=== PATIENT | male | born 1940 | race Caucasian/White ===

== ENCOUNTER 2016-12-03 20:21 | Emergency (ER) | payer OTHER ==
[~2016-12-03] VITALS: Ht 167.6 cm; Wt 72.6 kg
[~2016-12-03 20:21] MED LIST: ALDACTONE25 MG PO; ASPIRIN81 M1 PO; CIPROFLOXACIN500 M4 PO; COREG6.25 MG PO; DILTIAZEM HCL30 MG PO; ENOXAPARIN100 MG/ML SC; FAMOTIDINE20 M1 PO; FINASTERIDE5 M1 PO; KEFLEX500 M1 PO; LANOXIN0.125 MG PO; LASIX20 MG PO; LIPITOR40 MG PO; LISINOPRIL2.5 MG PO; LISINOPRIL5 MG PO; METOPROLOL SUCC25 M2 PO; PACERONE200 MG PO; PREDNISONE5 MG PO; PROVENTIL0.09 MG/A1 INH; SODIUM CHLORIDE IV; SPIRIVA18 MCG PO; TAMSULOSIN HCL0.4 MG PO; VICODIN 5-3001 EACH PO; XARE20MG PO; ZITHROMAX250 MG PO
[2016-12-03 22:07] LABS: BASO % 0.3 % (0.0-1.0); EOS # 0.1 10*3/uL (0.0-0.4); EOS % 0.5 % (1.0-4.0); HEMATOCRIT 49.5 % (42.0-52.0); HEMOGLOBIN 16.1 g/dl (14.0-18.0); LYMPH # 1.7 10*3/uL (1.3-4.4); LYMPH % 18.3 % (27.0-41.0); MEAN CELL VOLUME 99.6 fl (80.0-94.0); MEAN CORPUSCULAR HGB 32.4 pg (27.0-31.0); MEAN CORPUSCULAR HGB CONC 32.5 g/dl (33.0-37.0); MEAN PLATELET VOLUME 10.7 fl (9.6-12.3); MONO # 0.7 10*3/uL (0.1-1.0); MONO % 7.8 % (3.0-9.0); NEUT # 6.9 10*3/uL (2.3-7.9); NEUT % 72.8 % (47.0-73.0); PLATELET COUNT AUTOMATED 175 10*3/uL (130-400); RED BLOOD COUNT 4.97 10*6/uL (4.50-5.90); RED CELL DISTRI WIDTH 14.7 % (0-14.5); WHITE BLOOD COUNT 9.5 10*3/uL (4.8-10.8)
[2016-12-03 22:17] LABS: PROTHROMBIN TIME 10.6 SECONDS (9.0-12.4)
[2016-12-03 22:23] LABS: ALBUMIN 3.6 gm/dl (3.1-4.5); ALKALINE PHOSPHATASE 90 U/L (45-117); BILIRUBIN, DIRECT 0.1 mg/dL (0.0-0.2); BILIRUBIN, TOTAL 0.5 mg/dl (0.2-1.0); BUN 26 mg/dl (7-24); CARBON DIOXIDE 26 mmol/L (21-32); CHLORIDE 107 mmol/L (98-107); EST GLOM FILT AFRICAN AMERICAN > 60 ml/min; GLUCOSE 82 mg/dL (65-99); POTASSIUM 4.1 mmol/L (3.5-5.1); SGOT/AST 16 IU/L (3-35); SGPT/ALT 30 U/L (12-78); SODIUM 144 mmol/L (136-145); TOTAL PROTEIN 7.9 gm/dL (6.4-8.2)
== END 2016-12-03 23:04 | disposition short-term general hospital (02) ==
LOC: ED 20:21
PROVIDERS: Emergency Medicine
DX: S06.300A Unspecified focal traumatic brain injury without loss of consciousness, initial encounter (principal); S01.112A Laceration without foreign body of left eyelid and periocular area, initial encounter; S01.21XA Laceration without foreign body of nose, initial encounter; Z87.891 Personal history of nicotine dependence; I48.91 Unspecified atrial fibrillation; I48.92 Unspecified atrial flutter; I50.9 Heart failure, unspecified; J44.9 Chronic obstructive pulmonary disease, unspecified; E78.5 Hyperlipidemia, unspecified; Z79.82 Long term (current) use of aspirin; W01.198A Fall on same level from slipping, tripping and stumbling with subsequent striking against other object, initial encounter; Y93.89 Activity, other specified; Y92.89 Other specified places as the place of occurrence of the external cause; Y99.9 Unspecified external cause status

== ENCOUNTER 2018-04-10 14:58 | Inpatient (IN) | payer OTHER ==
[~2018-04-10] VITALS: Ht 35.2 cm; Wt 72.2 kg
[2018-04-10] VITALS (7 sets, daily range): BP systolic 89–148; BP diastolic 50–70
[2018-04-10] MEDS ORDERED: CEPHALEXIN500 M1 PO (16:02)
[2018-04-10 16:56] LABS: BASO % 0.7 % (0.0-1.0); EOS # 0.2 10*3/uL (0.0-0.4); EOS % 3.3 % (1.0-4.0); HEMOGLOBIN 13.5 g/dl (14.0-18.0); LYMPH # 1.7 10*3/uL (1.3-4.4); LYMPH % 30.3 % (27.0-41.0); MEAN CORPUSCULAR HGB 30.2 pg (27.0-31.0); MEAN CORPUSCULAR HGB CONC 32.1 g/dl (33.0-37.0); MEAN PLATELET VOLUME 11.1 fl (9.6-12.3); MONO # 0.6 10*3/uL (0.1-1.0); MONO % 11.3 % (3.0-9.0); NEUT % 54.2 % (47.0-73.0); PLATELET COUNT AUTOMATED 154 10*3/uL (130-400); RED BLOOD COUNT 4.47 10*6/uL (4.50-5.90); RED CELL DISTRI WIDTH 14.7 % (0-14.5); WHITE BLOOD COUNT 5.5 10*3/uL (4.8-10.8)
[2018-04-10] MEDS ORDERED: AMIODARONE HCL200 MG PO (16:59)
[2018-04-10] MEDS ORDERED: CITALOPRAM HYDR10 MG PO (17:00)
[2018-04-10] MEDS ORDERED: ATORVASTATIN CA40 M1 PO (17:00)
[2018-04-10 17:10] LABS: ALKALINE PHOSPHATASE 129 U/L (45-117); BUN 29 mg/dl (7-24); CREATININE 0.94 mg/dL (0.70-1.30); SGOT/AST 27 IU/L (3-35); SGPT/ALT 51 U/L (12-78)
[2018-04-10 17:19] LABS: CHLORIDE 110 mmol/L (98-107); POTASSIUM 4.2 mmol/L (3.5-5.1); SODIUM 140 mmol/L (136-145)
[2018-04-10 18:41] LABS: BILIRUBIN NEGATIVE (NEGATIVE); BLOOD 1+ (NEGATIVE); CLARITY CLOUDY (CLEAR); COLOR YELLOW (YELLOW); GLUCOSE NEGATIVE (NEGATIVE); KETONE NEGATIVE (NEGATIVE); LEUKO ESTERASE 3+ (NEGATIVE); NITRITE POSITIVE (NEGATIVE)
[2018-04-10 19:06] LABS: BACTERIA 3+; WBC TNTC wbc/hpf (0-5)
[2018-04-11 00:03] VITALS: BP 80/50
[2018-04-11 00:19] VITALS: BP 90/56
[2018-04-11 06:32] LABS: BASO % 0.2 % (0.0-1.0); EOS # 0.2 10*3/uL (0.0-0.4); EOS % 2.2 % (1.0-4.0); HEMOGLOBIN 12.7 g/dl (14.0-18.0); LYMPH # 1.7 10*3/uL (1.3-4.4); LYMPH % 21.6 % (27.0-41.0); MEAN CELL VOLUME 94.3 fl (80.0-94.0); MEAN CORPUSCULAR HGB CONC 31.8 g/dl (33.0-37.0); MEAN PLATELET VOLUME 11.1 fl (9.6-12.3); MONO # 0.9 10*3/uL (0.1-1.0); MONO % 11.7 % (3.0-9.0); NEUT # 5.1 10*3/uL (2.3-7.9); NEUT % 63.9 % (47.0-73.0); PLATELET COUNT AUTOMATED 136 10*3/uL (130-400); RED BLOOD COUNT 4.24 10*6/uL (4.50-5.90); RED CELL DISTRI WIDTH 14.9 % (0-14.5); WHITE BLOOD COUNT 8.1 10*3/uL (4.8-10.8)
[2018-04-11 06:44] LABS: INTERNATIONAL NORM RATIO 1.1 (2.0-3.5)
[2018-04-11 06:47] LABS: ALBUMIN 2.5 gm/dl (3.1-4.5); BUN 25 mg/dl (7-24); CHLORIDE 113 mmol/L (98-107); CHOLESTEROL 80 mg/dL (<200); CREATININE 0.93 mg/dL (0.70-1.30); PHOSPHOROUS 2.1 mg/dL (2.5-4.9); POTASSIUM 4.3 mmol/L (3.5-5.1); SGOT/AST 24 IU/L (3-35); SGPT/ALT 44 U/L (12-78); SODIUM 143 mmol/L (136-145); TOTAL PROTEIN 6.4 gm/dL (6.4-8.2); TRIGLYCERIDES 63 mg/dl (<150); VLDL CHOLESTEROL 13 mg/dL (6-40)
[2018-04-11 06:54] LABS: ALKALINE PHOSPHATASE 115 U/L (45-117); HDL CHOLESTEROL 30 mg/dl (40-60); LDL CHOLESTEROL 37 mg/dL (9-159); THYROID STIM HORMONE (HS) < 0.005 uIU/ml (0.358-4.75)
[2018-04-11 08:00] VITALS: BP 90/60
[2018-04-11 10:13] LABS: VITAMIN D, 25-HYDROXY 17.2 ng/mL (30-100)
[2018-04-11 12:00] VITALS: BP 92/64
[2018-04-11] MEDS ORDERED: OXYGEN NAS (13:43)
[2018-04-11 16:00] VITALS: BP 106/65
[2018-04-11 20:00] VITALS: BP 114/67
[2018-04-12] VITALS: BP 103/71
[2018-04-12 07:26] LABS: BASO # 0.1 10*3/uL (0.0-0.1); BASO % 0.7 % (0.0-1.0); EOS # 0.4 10*3/uL (0.0-0.4); EOS % 4.9 % (1.0-4.0); HEMATOCRIT 38.9 % (42.0-52.0); HEMOGLOBIN 12.2 g/dl (14.0-18.0); LYMPH # 2.1 10*3/uL (1.3-4.4); LYMPH % 28.2 % (27.0-41.0); MEAN CELL VOLUME 95.3 fl (80.0-94.0); MEAN CORPUSCULAR HGB 29.9 pg (27.0-31.0); MEAN CORPUSCULAR HGB CONC 31.4 g/dl (33.0-37.0); MEAN PLATELET VOLUME 11.2 fl (9.6-12.3); MONO % 13.6 % (3.0-9.0); NEUT # 3.8 10*3/uL (2.3-7.9); NEUT % 52.3 % (47.0-73.0); PLATELET COUNT AUTOMATED 148 10*3/uL (130-400); RED BLOOD COUNT 4.08 10*6/uL (4.50-5.90); RED CELL DISTRI WIDTH 14.9 % (0-14.5); WHITE BLOOD COUNT 7.3 10*3/uL (4.8-10.8)
[2018-04-12 07:52] LABS: BUN 30 mg/dl (7-24); CHLORIDE 111 mmol/L (98-107); CREATININE 0.82 mg/dL (0.70-1.30); POTASSIUM 4.2 mmol/L (3.5-5.1); SODIUM 142 mmol/L (136-145)
[2018-04-12 08:00] VITALS: BP 108/68
[2018-04-12 12:00] VITALS: BP 110/70
[2018-04-12 16:00] VITALS: BP 105/66
[2018-04-12 20:00] VITALS: BP 102/71
[2018-04-13] VITALS: BP 83/57
[2018-04-13 08:00] VITALS: BP 95/68
[2018-04-13 12:00] VITALS: BP 110/65
[2018-04-13] MEDS ORDERED: Ciprofloxacin500 MG PO (13:38)
== END 2018-04-13 14:09 | disposition home or self-care (01) | DRG 604 ==
LOC: ED 14:58 → EDHOLD 19:09 → 4E 19:09 → EDHOLD 19:33 → 4E 19:43
PROVIDERS: Family Medicine; Internal Medicine Hospice and Palliative Medicine; Nurse Practitioner
DX: S51.011A Laceration without foreign body of right elbow, initial encounter (principal); J96.21 Acute and chronic respiratory failure with hypoxia; N17.0 Acute kidney failure with tubular necrosis; E43 Unspecified severe protein-calorie malnutrition; D68.59 Other primary thrombophilia; E87.8 Other disorders of electrolyte and fluid balance, not elsewhere classified; I48.0 Paroxysmal atrial fibrillation; I50.22 Chronic systolic (congestive) heart failure; I48.92 Unspecified atrial flutter; N39.0 Urinary tract infection, site not specified; J43.2 Centrilobular emphysema; F32.9 Major depressive disorder, single episode, unspecified; K21.9 Gastro-esophageal reflux disease without esophagitis; E78.00 Pure hypercholesterolemia, unspecified; M54.5 Low back pain; G89.29 Other chronic pain; M62.81 Muscle weakness (generalized); D53.9 Nutritional anemia, unspecified; N40.1 Benign prostatic hyperplasia with lower urinary tract symptoms; R39.14 Feeling of incomplete bladder emptying; B96.20 Unspecified Escherichia coli [E. coli] as the cause of diseases classified elsewhere; R73.03 Prediabetes; E55.9 Vitamin D deficiency, unspecified; E53.8 Deficiency of other specified B group vitamins; Z68.27 Body mass index [BMI] 27.0-27.9, adult; Z98.1 Arthrodesis status; V29.9XXA Motorcycle rider (driver) (passenger) injured in unspecified traffic accident, initial encounter; Y93.89 Activity, other specified; Z99.81 Dependence on supplemental oxygen; Y92.89 Other specified places as the place of occurrence of the external cause; Y99.8 Other external cause status; Z87.891 Personal history of nicotine dependence; Z79.01 Long term (current) use of anticoagulants; Z79.82 Long term (current) use of aspirin; Z79.899 Other long term (current) drug therapy; Z82.49 Family history of ischemic heart disease and other diseases of the circulatory system; Z80.8 Family history of malignant neoplasm of other organs or systems

== ENCOUNTER → 2019-11-28 | Outpatient (CLI) | payer OTHER ==
[~2019-11-28] MED LIST changes: +AMIODARONE HCL200 MG PO; +ATORVASTATIN CA40 M1 PO; +CEPHALEXIN500 M1 PO; +CITALOPRAM HYDR10 MG PO; +Ciprofloxacin500 MG PO; +OXYGEN NAS
== END | disposition home or self-care (01) ==
LOC: CARD 11:56
DX: I08.0 Rheumatic disorders of both mitral and aortic valves (principal); I48.0 Paroxysmal atrial fibrillation

== ENCOUNTER 2020-01-09 15:32 | Emergency (ER) | payer OTHER ==
[~2020-01-09] VITALS: Ht 172.7 cm; Wt 84.8 kg
[2020-01-09 15:55] LABS: BASO % 0.4 % (0.0-1.0); EOS # 0.3 10*3/uL (0.0-0.4); HEMATOCRIT 44.3 % (42.0-52.0); HEMOGLOBIN 14.2 g/dl (14.0-18.0); LYMPH # 2.2 10*3/uL (1.3-4.4); LYMPH % 27.3 % (27.0-41.0); MEAN CELL VOLUME 102.1 fl (80.0-94.0); MEAN CORPUSCULAR HGB 32.7 pg (27.0-31.0); MEAN CORPUSCULAR HGB CONC 32.1 g/dl (33.0-37.0); MONO # 0.9 10*3/uL (0.1-1.0); MONO % 10.9 % (3.0-9.0); NEUT # 4.6 10*3/uL (2.3-7.9); NEUT % 57.2 % (47.0-73.0); PLATELET COUNT AUTOMATED 153 10*3/uL (130-400); RED BLOOD COUNT 4.34 10*6/uL (4.50-5.90); RED CELL DISTRI WIDTH 15.6 % (0-14.5); WHITE BLOOD COUNT 8.1 10*3/uL (4.8-10.8)
[2020-01-09 16:09] LABS: ACT PARTIAL THROMBO TIME 27.2 SECONDS (20.0-32.1)
[2020-01-09 16:12] LABS: ALBUMIN 3.1 gm/dl (3.1-4.5); ALKALINE PHOSPHATASE 62 U/L (45-117); BUN 29 mg/dl (7-24); CHLORIDE 112 mmol/L (98-107); CREATININE 1.14 mg/dL (0.70-1.30); POTASSIUM 4.3 mmol/L (3.5-5.1); SGOT/AST 11 IU/L (3-35); SGPT/ALT 21 U/L (12-78); SODIUM 144 mmol/L (136-145); TOTAL PROTEIN 6.8 gm/dL (6.4-8.2)
[2020-01-09 16:15] LABS: TROPONIN I < 0.015 ng/ml (<0.045)
== END 2020-01-09 17:05 | disposition home or self-care (01) ==
LOC: ED 15:32
PROVIDERS: Emergency Medicine
DX: R00.1 Bradycardia, unspecified (principal); I48.91 Unspecified atrial fibrillation; Z79.899 Other long term (current) drug therapy; Z87.891 Personal history of nicotine dependence; Z79.82 Long term (current) use of aspirin

== ENCOUNTER 2021-03-15 21:14 | Observation (INO) | payer OTHER ==
[~2021-03-15] VITALS: Ht 167.6 cm; Wt 80.8 kg
[2021-03-15 21:20] VITALS: BP 96/63
[2021-03-15 21:41] LABS: BASO % 0.3 % (0.0-1.0); EOS # 0.2 10*3/uL (0.0-0.4); EOS % 2.9 % (1.0-4.0); HEMATOCRIT 43.4 % (42.0-52.0); LYMPH # 1.5 10*3/uL (1.3-4.4); LYMPH % 20.2 % (27.0-41.0); MEAN CELL VOLUME 100.5 fl (80.0-94.0); MEAN CORPUSCULAR HGB 32.2 pg (27.0-31.0); MEAN PLATELET VOLUME 10.9 fl (9.6-12.3); MONO % 13.6 % (3.0-9.0); NEUT # 4.6 10*3/uL (2.3-7.9); NEUT % 62.9 % (47.0-73.0); PLATELET COUNT AUTOMATED 152 10*3/uL (130-400); RED BLOOD COUNT 4.32 10*6/uL (4.50-5.90); RED CELL DISTRI WIDTH 14.9 % (0-14.5); WHITE BLOOD COUNT 7.3 10*3/uL (4.8-10.8)
[2021-03-15 22:00] LABS: ALBUMIN 2.9 gm/dl (3.1-4.5); ALKALINE PHOSPHATASE 84 U/L (45-117); BUN 24 mg/dl (7-24); CHLORIDE 114 mmol/L (98-107); CREATININE 1.04 mg/dL (0.70-1.30); SGOT/AST 19 IU/L (3-35); SGPT/ALT 22 U/L (12-78); SODIUM 144 mmol/L (136-145)
[2021-03-15 23:16] LABS: BILIRUBIN Negative (Negative); BLOOD Negative (Negative); CLARITY Turbid (Clear); COLOR Yellow (Yellow); GLUCOSE Negative (Negative); KETONE Negative (Negative); LEUKO ESTERASE 3+ (Negative); NITRITE Positive (Negative); PH 7.5 (4.5-8.0)
[2021-03-15 23:40] LABS: BACTERIA 4+; WBC 31-40 wbc/hpf (0-5)
[2021-03-16 01:00] VITALS: BP 97/42
[2021-03-16 06:03] LABS: BASO % 0.2 % (0.0-1.0); EOS # 0.1 10*3/uL (0.0-0.4); EOS % 0.7 % (1.0-4.0); HEMATOCRIT 42.7 % (42.0-52.0); LYMPH # 0.8 10*3/uL (1.3-4.4); LYMPH % 9.9 % (27.0-41.0); MEAN CELL VOLUME 100.7 fl (80.0-94.0); MEAN CORPUSCULAR HGB 31.8 pg (27.0-31.0); MEAN CORPUSCULAR HGB CONC 31.6 g/dl (33.0-37.0); MEAN PLATELET VOLUME 11.4 fl (9.6-12.3); MONO # 0.3 10*3/uL (0.1-1.0); MONO % 3.7 % (3.0-9.0); NEUT # 6.9 10*3/uL (2.3-7.9); NEUT % 85.1 % (47.0-73.0); PLATELET COUNT AUTOMATED 143 10*3/uL (130-400); RED BLOOD COUNT 4.24 10*6/uL (4.50-5.90); WHITE BLOOD COUNT 8.2 10*3/uL (4.8-10.8)
[2021-03-16 06:14] LABS: ACT PARTIAL THROMBO TIME 27.5 SECONDS (20.0-32.1); INTERNATIONAL NORM RATIO 1.1 (2.0-3.5)
[2021-03-16 06:30] LABS: ALBUMIN 2.8 gm/dl (3.1-4.5); BUN 24 mg/dl (7-24); CHLORIDE 114 mmol/L (98-107); CHOLESTEROL 99 mg/dL (<200); CREATININE 0.98 mg/dL (0.70-1.30); POTASSIUM 3.9 mmol/L (3.5-5.1); SGOT/AST 21 IU/L (3-35); SGPT/ALT 23 U/L (12-78); SODIUM 144 mmol/L (136-145); TOTAL PROTEIN 6.7 gm/dL (6.4-8.2); TRIGLYCERIDES 57 mg/dl (<150); VLDL CHOLESTEROL 11 mg/dL (6-40)
[2021-03-16 06:37] LABS: ALKALINE PHOSPHATASE 80 U/L (45-117); FREE T4 1.38 ng/dl (0.76-1.46); HDL CHOLESTEROL 41 mg/dl (40-60); LDL CHOLESTEROL 47 mg/dL (9-159)
[2021-03-16 07:30] LABS: VITAMIN D, 25-HYDROXY 27.9 ng/mL (30-100)
[2021-03-16 08:00] VITALS: BP 104/62
[2021-03-16] MEDS ORDERED: PREDNISONE10 MG PO (11:28)
[2021-03-16] MEDS ORDERED: OMNICEF300 MG PO (11:28)
[2021-03-16] MEDS ORDERED: AVPAK AZITHROM250 M1 PO (11:28)
== END 2021-03-16 13:40 | disposition home or self-care (01) ==
LOC: ED 21:14 → EDHOLD 23:50 → 4E 23:50
PROVIDERS: Emergency Medicine; Internal Medicine; ADMIT Internal Medicine; ATTEND Internal Medicine
DX: N39.0 Urinary tract infection, site not specified (principal); R00.1 Bradycardia, unspecified; G93.41 Metabolic encephalopathy; D53.9 Nutritional anemia, unspecified; E44.1 Mild protein-calorie malnutrition; E87.8 Other disorders of electrolyte and fluid balance, not elsewhere classified; J44.1 Chronic obstructive pulmonary disease with (acute) exacerbation; J96.01 Acute respiratory failure with hypoxia; I48.92 Unspecified atrial flutter; M43.26 Fusion of spine, lumbar region; M54.9 Dorsalgia, unspecified; G89.29 Other chronic pain; R29.898 Other symptoms and signs involving the musculoskeletal system; I48.0 Paroxysmal atrial fibrillation; N17.0 Acute kidney failure with tubular necrosis; E78.00 Pure hypercholesterolemia, unspecified; K21.9 Gastro-esophageal reflux disease without esophagitis; F32.9 Major depressive disorder, single episode, unspecified; N40.0 Benign prostatic hyperplasia without lower urinary tract symptoms; I50.22 Chronic systolic (congestive) heart failure; E55.9 Vitamin D deficiency, unspecified

== ENCOUNTER 2021-03-19 14:04 | Inpatient (IN) | payer OTHER ==
[~2021-03-19] VITALS: Ht 165.1 cm; Wt 79.0 kg
[2021-03-19 12:00] VITALS: BP 100/70
[~2021-03-19 14:04] MED LIST changes: +AVPAK AZITHROM250 M1 PO; +OMNICEF300 MG PO; +PREDNISONE10 MG PO
[2021-03-19 14:15] VITALS: BP 97/54
[2021-03-19 14:55] LABS: BASO % 0.3 % (0.0-1.0); EOS # 0.1 10*3/uL (0.0-0.4); EOS % 1.8 % (1.0-4.0); HEMATOCRIT 42.9 % (42.0-52.0); LYMPH # 1.7 10*3/uL (1.3-4.4); MEAN CELL VOLUME 101.4 fl (80.0-94.0); MEAN CORPUSCULAR HGB 32.4 pg (27.0-31.0); MEAN CORPUSCULAR HGB CONC 31.9 g/dl (33.0-37.0); MEAN PLATELET VOLUME 11.3 fl (9.6-12.3); MONO # 0.8 10*3/uL (0.1-1.0); MONO % 10.9 % (3.0-9.0); NEUT # 4.5 10*3/uL (2.3-7.9); NEUT % 62.7 % (47.0-73.0); PLATELET COUNT AUTOMATED 155 10*3/uL (130-400); RED BLOOD COUNT 4.23 10*6/uL (4.50-5.90); RED CELL DISTRI WIDTH 15.2 % (0-14.5); WHITE BLOOD COUNT 7.1 10*3/uL (4.8-10.8)
[2021-03-19 15:05] LABS: ACT PARTIAL THROMBO TIME 25.2 SECONDS (20.0-32.1); INTERNATIONAL NORM RATIO 1.1 (2.0-3.5)
[2021-03-19 15:12] LABS: ALKALINE PHOSPHATASE 73 U/L (45-117); BUN 32 mg/dl (7-24); CHLORIDE 112 mmol/L (98-107); CPK 249 U/L (39-308); POTASSIUM 4.6 mmol/L (3.5-5.1); SGOT/AST 25 IU/L (3-35); SGPT/ALT 37 U/L (12-78); SODIUM 144 mmol/L (136-145); TOTAL PROTEIN 6.4 gm/dL (6.4-8.2)
[2021-03-19 15:13] LABS: ETHYL ALCOHOL < 3.0 mg/dl (<3); TROPONIN I < 0.015 ng/ml (<0.045)
[2021-03-19 18:19] VITALS: BP 111/69
[2021-03-19 20:00] VITALS: BP 95/55
[2021-03-19 20:05] LABS: BILIRUBIN Negative (Negative); BLOOD Negative (Negative); CLARITY Clear (Clear); COLOR Yellow (Yellow); GLUCOSE Negative (Negative); KETONE Negative (Negative); LEUKO ESTERASE 1+ (Negative); NITRITE Negative (Negative); UROBILINOGEN 0.2 E.U./dl (0.0-1.0)
[2021-03-19 20:14] LABS: URINE AMPHETAMINES < 1000 (1000ng/ml); URINE BARBITURATES < 200 (200ng/ml); URINE BENZODIAZEPINES < 200 (200ng/ml); URINE CANNABINOIDS (THC) < 50 (50ng/ml); URINE COCAINE < 300 (300ng/ml); URINE METHADONE < 300 (300ng/ml); URINE OPIATES < 300 (300ng/ml)
[2021-03-19 20:15] LABS: BACTERIA TRACE; FINE GRANULAR CAST 0-2; MUCOUS 1+; RBC 0-2 rbc/hpf (0-2); WBC 16-20 wbc/hpf (0-5)
[2021-03-19 20:22] LABS: URINE PHENCYCLIDINE < 25 (25ng/ml)
[2021-03-19] MEDS ORDERED: METOPROLOL PO (21:56)
[2021-03-20] VITALS: BP 99/58
[2021-03-20 07:19] LABS: VITAMIN D, 25-HYDROXY 25.4 ng/mL (30-100)
[2021-03-20 08:00] VITALS: BP 102/62
[2021-03-20 12:00] VITALS: BP 100/56
[2021-03-20 16:00] VITALS: BP 127/88
[2021-03-20 20:00] VITALS: BP 126/87
[2021-03-21] VITALS: BP 121/75
[2021-03-21 05:58] LABS: BUN 28 mg/dl (7-24); CHLORIDE 110 mmol/L (98-107); CREATININE 1.01 mg/dL (0.70-1.30); POTASSIUM 4.3 mmol/L (3.5-5.1); SODIUM 141 mmol/L (136-145)
[2021-03-21 08:00] VITALS: BP 88/56
[2021-03-21 08:30] VITALS: BP 92/54
[2021-03-21 12:00] VITALS: BP 97/71
[2021-03-21 16:00] VITALS: BP 104/74
[2021-03-21 20:00] VITALS: BP 89/58
[2021-03-22] VITALS: BP 98/69
[2021-03-22 08:00] VITALS: BP 94/62
[2021-03-22 12:00] VITALS: BP 97/68
[2021-03-22] MEDS ORDERED: LACTULOSE20 GM/30 M PO (13:21)
[2021-03-22] MEDS ORDERED: RIVASTIGMINE TAR3 M1 PO (13:21)
[2021-03-22] MEDS ORDERED: NAMENDA-5 PO (13:21)
[2021-03-22] MEDS ORDERED: DULOXETINE HCL30 MG PO (13:21)
[2021-03-22] MEDS ORDERED: VITAMIN D350 MC2 PO (13:21)
== END 2021-03-22 16:15 | disposition home health service (06) | DRG 189 ==
LOC: ED 14:04 → EDHOLD 16:58 → 5E 16:58
PROVIDERS: Emergency Medicine; Student in an Organized Health Care Education/Training Program; ADMIT Emergency Medicine; ATTEND Emergency Medicine
DX: J96.00 Acute respiratory failure, unspecified whether with hypoxia or hypercapnia (principal); F03.91 Unspecified dementia, unspecified severity, with behavioral disturbance; E44.1 Mild protein-calorie malnutrition; I50.22 Chronic systolic (congestive) heart failure; E72.20 Disorder of urea cycle metabolism, unspecified; R29.6 Repeated falls; D53.9 Nutritional anemia, unspecified; N40.0 Benign prostatic hyperplasia without lower urinary tract symptoms; K21.9 Gastro-esophageal reflux disease without esophagitis; I48.0 Paroxysmal atrial fibrillation; F32.9 Major depressive disorder, single episode, unspecified; M54.9 Dorsalgia, unspecified; E55.9 Vitamin D deficiency, unspecified; E78.00 Pure hypercholesterolemia, unspecified; M62.81 Muscle weakness (generalized); J43.9 Emphysema, unspecified; G89.29 Other chronic pain; R73.9 Hyperglycemia, unspecified; Z82.49 Family history of ischemic heart disease and other diseases of the circulatory system

== ENCOUNTER 2021-04-21 13:59 | Inpatient (IN) | payer OTHER ==
[~2021-04-21] VITALS: Ht 167.6 cm; Wt 73.2 kg
[2021-04-21] VITALS (9 sets, daily range): BP systolic 79–105; BP diastolic 44–65
[~2021-04-21 13:59] MED LIST changes: +DULOXETINE HCL30 MG PO; +LACTULOSE20 GM/30 M PO; +METOPROLOL PO; +NAMENDA-5 PO; +RIVASTIGMINE TAR3 M1 PO; +VITAMIN D350 MC2 PO
[2021-04-21 14:28] LABS: BASO # 0.1 10*3/uL (0.0-0.1); BASO % 0.8 % (0.0-1.0); EOS # 0.3 10*3/uL (0.0-0.4); EOS % 3.9 % (1.0-4.0); HEMATOCRIT 45.7 % (42.0-52.0); LYMPH # 2.4 10*3/uL (1.3-4.4); LYMPH % 32.8 % (27.0-41.0); MEAN CELL VOLUME 98.5 fl (80.0-94.0); MEAN CORPUSCULAR HGB 31.9 pg (27.0-31.0); MEAN CORPUSCULAR HGB CONC 32.4 g/dl (33.0-37.0); MEAN PLATELET VOLUME 11.3 fl (9.6-12.3); MONO # 0.8 10*3/uL (0.1-1.0); NEUT # 3.8 10*3/uL (2.3-7.9); NEUT % 51.2 % (47.0-73.0); PLATELET COUNT AUTOMATED 163 10*3/uL (130-400); RED BLOOD COUNT 4.64 10*6/uL (4.50-5.90); RED CELL DISTRI WIDTH 14.4 % (0-14.5); WHITE BLOOD COUNT 7.4 10*3/uL (4.8-10.8)
[2021-04-21 14:46] LABS: ALBUMIN 2.7 gm/dl (3.1-4.5); ALKALINE PHOSPHATASE 84 U/L (45-117); BUN 37 mg/dl (7-24); CHLORIDE 112 mmol/L (98-107); CREATININE 1.29 mg/dL (0.70-1.30); LIPASE 116 U/L (73-393); SGOT/AST 18 IU/L (3-35); SGPT/ALT 25 U/L (12-78); SODIUM 141 mmol/L (136-145); TOTAL PROTEIN 6.8 gm/dL (6.4-8.2)
[2021-04-21 14:48] LABS: TROPONIN I < 0.015 ng/ml (<0.045)
[2021-04-21 17:11] LABS: BILIRUBIN Negative (Negative); BLOOD 1+ (Negative); CLARITY Turbid (Clear); COLOR Yellow (Yellow); GLUCOSE Negative (Negative); KETONE Negative (Negative); LEUKO ESTERASE 3+ (Negative); NITRITE Negative (Negative); PH 5.5 (4.5-8.0)
[2021-04-21 17:19] LABS: WBC TNTC wbc/hpf (0-5)
[2021-04-21] MEDS ORDERED: PROVENTIL HFA6.7 GM INH (21:19)
[2021-04-21] MEDS ORDERED: CITALOPRAM20 MG PO (21:20)
[2021-04-21] MEDS ORDERED: METOPROLOL SUCC50 M2 PO (21:21)
[2021-04-21] MEDS ORDERED: SPIRIVA18 MCG PO (21:22)
[2021-04-22] VITALS: BP 113/64; BP 153/90
[2021-04-22 04:00] VITALS: BP 120/70
[2021-04-22 06:13] LABS: BASO % 0.5 % (0.0-1.0); EOS # 0.3 10*3/uL (0.0-0.4); EOS % 4.1 % (1.0-4.0); HEMATOCRIT 45.1 % (42.0-52.0); LYMPH % 25.8 % (27.0-41.0); MEAN CELL VOLUME 98.9 fl (80.0-94.0); MEAN CORPUSCULAR HGB 31.6 pg (27.0-31.0); MEAN CORPUSCULAR HGB CONC 31.9 g/dl (33.0-37.0); MEAN PLATELET VOLUME 11.6 fl (9.6-12.3); MONO # 0.8 10*3/uL (0.1-1.0); MONO % 9.8 % (3.0-9.0); NEUT # 4.7 10*3/uL (2.3-7.9); NEUT % 59.5 % (47.0-73.0); PLATELET COUNT AUTOMATED 157 10*3/uL (130-400); RED BLOOD COUNT 4.56 10*6/uL (4.50-5.90); RED CELL DISTRI WIDTH 14.3 % (0-14.5); WHITE BLOOD COUNT 7.9 10*3/uL (4.8-10.8)
[2021-04-22 06:28] LABS: ALBUMIN 2.7 gm/dl (3.1-4.5); ALKALINE PHOSPHATASE 84 U/L (45-117); BUN 29 mg/dl (7-24); CHLORIDE 112 mmol/L (98-107); CREATININE 1.05 mg/dL (0.70-1.30); POTASSIUM 4.5 mmol/L (3.5-5.1); SGOT/AST 17 IU/L (3-35); SGPT/ALT 26 U/L (12-78); SODIUM 142 mmol/L (136-145); TOTAL PROTEIN 6.3 gm/dL (6.4-8.2)
[2021-04-22 08:00] VITALS: BP 115/75
[2021-04-22 12:00] VITALS: BP 86/30
[2021-04-22 16:00] VITALS: BP 103/60
[2021-04-22 20:00] VITALS: BP 94/57
[2021-04-23] VITALS: BP 120/73
[2021-04-23 08:00] VITALS: BP 136/66
[2021-04-23 12:00] VITALS: BP 104/62
== END 2021-04-23 13:25 | disposition home or self-care (01) | DRG 312 ==
LOC: ED 13:59 → EDHOLD 17:53 → 4E 17:53
PROVIDERS: Emergency Medicine; Internal Medicine; ADMIT Family Medicine; ATTEND Family Medicine
DX: I95.2 Hypotension due to drugs (principal); E43 Unspecified severe protein-calorie malnutrition; N39.0 Urinary tract infection, site not specified; I48.92 Unspecified atrial flutter; D68.59 Other primary thrombophilia; I50.22 Chronic systolic (congestive) heart failure; J96.10 Chronic respiratory failure, unspecified whether with hypoxia or hypercapnia; I42.9 Cardiomyopathy, unspecified; R00.1 Bradycardia, unspecified; D53.9 Nutritional anemia, unspecified; E87.8 Other disorders of electrolyte and fluid balance, not elsewhere classified; E83.41 Hypermagnesemia; R79.82 Elevated C-reactive protein (CRP); J44.9 Chronic obstructive pulmonary disease, unspecified; G89.29 Other chronic pain; R53.1 Weakness; E78.00 Pure hypercholesterolemia, unspecified; M54.9 Dorsalgia, unspecified; F32.9 Major depressive disorder, single episode, unspecified; K21.9 Gastro-esophageal reflux disease without esophagitis; N40.0 Benign prostatic hyperplasia without lower urinary tract symptoms; T44.7X5A Adverse effect of beta-adrenoreceptor antagonists, initial encounter; F03.90 Unspecified dementia, unspecified severity, without behavioral disturbance, psychotic disturbance, mood disturbance, and anxiety; Z66 Do not resuscitate; Z51.5 Encounter for palliative care; E78.5 Hyperlipidemia, unspecified; I48.0 Paroxysmal atrial fibrillation; Y92.89 Other specified places as the place of occurrence of the external cause; Z98.1 Arthrodesis status; Z87.891 Personal history of nicotine dependence; Z82.49 Family history of ischemic heart disease and other diseases of the circulatory system; Z80.9 Family history of malignant neoplasm, unspecified; Z79.899 Other long term (current) drug therapy; Z79.82 Long term (current) use of aspirin; Z68.26 Body mass index [BMI] 26.0-26.9, adult

== ENCOUNTER 2021-06-29 17:01 | Inpatient (IN) | payer OTHER ==
[~2021-06-29] VITALS: Ht 177.8 cm; Wt 78.9 kg
[~2021-06-29 17:01] MED LIST changes: +AMOXICILLIN500 M3 PO; +CITALOPRAM20 MG PO; +METOPROLOL SUCC50 M1 PO; +METOPROLOL SUCC50 M2 PO; +PROVENTIL HFA6.7 GM INH
[2021-06-29 17:06] VITALS: BP 121/58
[2021-06-29 17:40] LABS: BASO % 0.4 % (0.0-1.0); EOS # 0.3 10*3/uL (0.0-0.4); HEMATOCRIT 46.1 % (42.0-52.0); LYMPH # 1.7 10*3/uL (1.3-4.4); MEAN CELL VOLUME 101.5 fl (80.0-94.0); MEAN CORPUSCULAR HGB 31.7 pg (27.0-31.0); MEAN CORPUSCULAR HGB CONC 31.2 g/dl (33.0-37.0); MEAN PLATELET VOLUME 10.3 fl (9.6-12.3); MONO # 0.9 10*3/uL (0.1-1.0); NEUT # 5.4 10*3/uL (2.3-7.9); NEUT % 65.4 % (47.0-73.0); PLATELET COUNT AUTOMATED 154 10*3/uL (130-400); RED BLOOD COUNT 4.54 10*6/uL (4.50-5.90); RED CELL DISTRI WIDTH 15.6 % (0-14.5); WHITE BLOOD COUNT 8.3 10*3/uL (4.8-10.8)
[2021-06-29 18:00] LABS: ALBUMIN 3.1 gm/dl (3.1-4.5); ALKALINE PHOSPHATASE 92 U/L (45-117); BUN 28 mg/dl (7-24); CHLORIDE 113 mmol/L (98-107); LIPASE 84 U/L (73-393); POTASSIUM 4.2 mmol/L (3.5-5.1); SGOT/AST 21 IU/L (3-35); SGPT/ALT 34 U/L (12-78); SODIUM 143 mmol/L (136-145)
[2021-06-29 18:07] LABS: TROPONIN I < 0.015 ng/ml (<0.045)
[2021-06-29 18:22] VITALS: BP 122/59
[2021-06-29 18:27] LABS: BILIRUBIN Negative (Negative); BLOOD Negative (Negative); CLARITY Clear (Clear); COLOR Yellow (Yellow); GLUCOSE Negative (Negative); KETONE Negative (Negative); LEUKO ESTERASE Trace (Negative); NITRITE Negative (Negative); UROBILINOGEN 0.2 E.U./dl (0.0-1.0)
[2021-06-29 19:04] LABS: BACTERIA 1+
[2021-06-29 19:41] VITALS: BP 129/84
[2021-06-29 20:09] VITALS: BP 107/63
[2021-06-29 21:20] VITALS: BP 108/52
[2021-06-29 23:30] VITALS: BP 102/51
[2021-06-30] VITALS (17 sets, daily range): BP systolic 78–110; BP diastolic 48–70
[2021-06-30 05:38] LABS: ALKALINE PHOSPHATASE 83 U/L (45-117); BUN 25 mg/dl (7-24); CHLORIDE 116 mmol/L (98-107); CREATININE 0.92 mg/dL (0.70-1.30); FREE T4 1.26 ng/dl (0.76-1.46); SGOT/AST 21 IU/L (3-35); SGPT/ALT 31 U/L (12-78); SODIUM 144 mmol/L (136-145); TOTAL PROTEIN 6.9 gm/dL (6.4-8.2)
[2021-06-30 06:58] LABS: MEAN CORPUSCULAR HGB 32.4 pg (27.0-31.0); MEAN CORPUSCULAR HGB CONC 31.7 g/dl (33.0-37.0); PLATELET COUNT AUTOMATED 143 10*3/uL (130-400); RED BLOOD COUNT 4.51 10*6/uL (4.50-5.90); RED CELL DISTRI WIDTH 15.4 % (0-14.5); WHITE BLOOD COUNT 8.1 10*3/uL (4.8-10.8)
[2021-06-30 07:58] LABS: TOTAL CELLS COUNTED 100 #CELLS
[2021-06-30 07:59] LABS: PLATELET SUFFICIENCY NORMAL (NORMAL)
[2021-06-30 11:42] LABS: ABG BASE EXCESS -0.7 mmol/L (-2.0-2.0); ARTERIAL BLOOD GAS PH 7.421 (7.35-7.45); ARTERIAL BLOOD GAS PO2 59.8 (80-90)
[2021-07-01 00:18] VITALS: BP 110/57
[2021-07-01 06:31] LABS: ALBUMIN 2.6 gm/dl (3.1-4.5); ALKALINE PHOSPHATASE 69 U/L (45-117); BUN 21 mg/dl (7-24); CHLORIDE 117 mmol/L (98-107); POTASSIUM 3.7 mmol/L (3.5-5.1); SGOT/AST 23 IU/L (3-35); SGPT/ALT 29 U/L (12-78); SODIUM 146 mmol/L (136-145)
[2021-07-01 06:33] LABS: HEMATOCRIT 40.3 % (42.0-52.0); MEAN CELL VOLUME 101.3 fl (80.0-94.0); MEAN CORPUSCULAR HGB 32.2 pg (27.0-31.0); MEAN CORPUSCULAR HGB CONC 31.8 g/dl (33.0-37.0); MEAN PLATELET VOLUME 11.3 fl (9.6-12.3); PLATELET COUNT AUTOMATED 144 10*3/uL (130-400); RED BLOOD COUNT 3.98 10*6/uL (4.50-5.90); RED CELL DISTRI WIDTH 15.6 % (0-14.5); WHITE BLOOD COUNT 12.6 10*3/uL (4.8-10.8)
[2021-07-01 08:03] LABS: PLATELET SUFFICIENCY NORMAL (NORMAL); TOTAL CELLS COUNTED 100 #CELLS
[2021-07-01 08:26] VITALS: BP 106/56
[2021-07-01 11:27] LABS: ABG BASE EXCESS -4.8 mmol/L (-2.0-2.0); ARTERIAL BLOOD GAS PH 7.376 (7.35-7.45); ARTERIAL BLOOD GAS PO2 68.7 (80-90)
[2021-07-01 12:00] VITALS: BP 106/50
[2021-07-01 12:17] VITALS: BP 106/57
[2021-07-01 16:00] VITALS: BP 97/58
[2021-07-01 20:00] VITALS: BP 101/53
[2021-07-02] VITALS: BP 115/68
[2021-07-02 06:43] LABS: BASO % 0.1 % (0.0-1.0); HEMATOCRIT 40.7 % (42.0-52.0); LYMPH # 0.6 10*3/uL (1.3-4.4); LYMPH % 4.3 % (27.0-41.0); MEAN CELL VOLUME 104.1 fl (80.0-94.0); MEAN CORPUSCULAR HGB 32.7 pg (27.0-31.0); MEAN CORPUSCULAR HGB CONC 31.4 g/dl (33.0-37.0); MEAN PLATELET VOLUME 11.4 fl (9.6-12.3); MONO # 0.6 10*3/uL (0.1-1.0); MONO % 4.8 % (3.0-9.0); NEUT # 12.1 10*3/uL (2.3-7.9); PLATELET COUNT AUTOMATED 148 10*3/uL (130-400); RED BLOOD COUNT 3.91 10*6/uL (4.50-5.90); WHITE BLOOD COUNT 13.4 10*3/uL (4.8-10.8)
[2021-07-02 07:14] LABS: ALBUMIN 2.6 gm/dl (3.1-4.5); ALKALINE PHOSPHATASE 65 U/L (45-117); BUN 26 mg/dl (7-24); CHLORIDE 117 mmol/L (98-107); CREATININE 0.91 mg/dL (0.70-1.30); POTASSIUM 3.9 mmol/L (3.5-5.1); SGOT/AST 23 IU/L (3-35); SGPT/ALT 31 U/L (12-78); SODIUM 146 mmol/L (136-145)
[2021-07-02 07:30] VITALS: BP 115/64
[2021-07-02 12:41] VITALS: BP 99/48
[2021-07-02 15:34] VITALS: BP 86/48
[2021-07-02 20:00] VITALS: BP 92/47
[2021-07-03] VITALS: BP 116/72
[2021-07-03 06:13] LABS: BUN 31 mg/dl (7-24); CHLORIDE 113 mmol/L (98-107); CREATININE 0.92 mg/dL (0.70-1.30); POTASSIUM 4.2 mmol/L (3.5-5.1); SODIUM 144 mmol/L (136-145)
[2021-07-03 08:00] VITALS: BP 103/66
[2021-07-03 12:00] VITALS: BP 119/77
[2021-07-03 14:00] VITALS: BP 112/62
[2021-07-03 20:00] VITALS: BP 111/67
[2021-07-04] VITALS: BP 115/71
[2021-07-04 06:09] LABS: BUN 33 mg/dl (7-24); CHLORIDE 112 mmol/L (98-107); CREATININE 0.88 mg/dL (0.70-1.30); POTASSIUM 4.3 mmol/L (3.5-5.1); SODIUM 145 mmol/L (136-145)
[2021-07-04 06:13] LABS: HEMATOCRIT 41.8 % (42.0-52.0); LYMPH # 0.5 10*3/uL (1.3-4.4); LYMPH % 5.2 % (27.0-41.0); MEAN CORPUSCULAR HGB 32.3 pg (27.0-31.0); MEAN CORPUSCULAR HGB CONC 32.1 g/dl (33.0-37.0); MEAN PLATELET VOLUME 11.2 fl (9.6-12.3); MONO # 0.5 10*3/uL (0.1-1.0); MONO % 5.2 % (3.0-9.0); NEUT # 8.8 10*3/uL (2.3-7.9); NEUT % 88.9 % (47.0-73.0); PLATELET COUNT AUTOMATED 133 10*3/uL (130-400); RED BLOOD COUNT 4.15 10*6/uL (4.50-5.90); RED CELL DISTRI WIDTH 15.9 % (0-14.5); WHITE BLOOD COUNT 9.9 10*3/uL (4.8-10.8)
[2021-07-04 06:21] LABS: MEAN CELL VOLUME 100.7 fl (80.0-94.0)
[2021-07-04 08:00] VITALS: BP 125/69
[2021-07-04 12:00] VITALS: BP 109/64
[2021-07-04 16:00] VITALS: BP 115/74
[2021-07-04 20:00] VITALS: BP 87/50
[2021-07-05] VITALS: BP 126/76
[2021-07-05 08:00] VITALS: BP 128/76
[2021-07-05 12:00] VITALS: BP 104/84
[2021-07-05 13:54] LABS: HEMATOCRIT 42.9 % (42.0-52.0); MEAN CORPUSCULAR HGB 32.4 pg (27.0-31.0); MEAN CORPUSCULAR HGB CONC 32.4 g/dl (33.0-37.0); MEAN PLATELET VOLUME 10.7 fl (9.6-12.3); PLATELET COUNT AUTOMATED 130 10*3/uL (130-400); RED BLOOD COUNT 4.29 10*6/uL (4.50-5.90); RED CELL DISTRI WIDTH 15.8 % (0-14.5); WHITE BLOOD COUNT 9.2 10*3/uL (4.8-10.8)
[2021-07-05 14:10] LABS: ALBUMIN 2.6 gm/dl (3.1-4.5); ALKALINE PHOSPHATASE 57 U/L (45-117); BUN 34 mg/dl (7-24); CHLORIDE 110 mmol/L (98-107); CREATININE 0.86 mg/dL (0.70-1.30); POTASSIUM 4.4 mmol/L (3.5-5.1); SGOT/AST 15 IU/L (3-35); SGPT/ALT 36 U/L (12-78); SODIUM 143 mmol/L (136-145); TOTAL PROTEIN 5.8 gm/dL (6.4-8.2)
[2021-07-05 14:16] LABS: PLATELET SUFFICIENCY NORMAL (NORMAL); TOTAL CELLS COUNTED 100 #CELLS
[2021-07-05 15:01] LABS: ABG BASE EXCESS -0.5 mmol/L (-2.0-2.0); ARTERIAL BLOOD GAS PH 7.469 (7.35-7.45); ARTERIAL BLOOD GAS PO2 76.9 (80-90)
[2021-07-05 16:00] VITALS: BP 116/89
[2021-07-05 20:00] VITALS: BP 112/49
[2021-07-06] VITALS: BP 132/80
[2021-07-06 07:46] VITALS: BP 110/66
[2021-07-06 08:00] VITALS: BP 124/88
[2021-07-06 12:00] VITALS: BP 127/82
[2021-07-06 16:00] VITALS: BP 106/65
[2021-07-06 20:00] VITALS: BP 112/74
[2021-07-07] VITALS: BP 126/76
[2021-07-07 08:00] VITALS: BP 108/68
[2021-07-07 12:00] VITALS: BP 109/72
[2021-07-07 16:00] VITALS: BP 116/61
[2021-07-07 20:00] VITALS: BP 123/76
[2021-07-08] VITALS: BP 133/75
[2021-07-08 06:39] LABS: HEMATOCRIT 41.5 % (42.0-52.0); MEAN CELL VOLUME 100.2 fl (80.0-94.0); MEAN CORPUSCULAR HGB 32.9 pg (27.0-31.0); MEAN CORPUSCULAR HGB CONC 32.8 g/dl (33.0-37.0); MEAN PLATELET VOLUME 11.6 fl (9.6-12.3); PLATELET COUNT AUTOMATED 125 10*3/uL (130-400); RED BLOOD COUNT 4.14 10*6/uL (4.50-5.90); RED CELL DISTRI WIDTH 15.9 % (0-14.5); WHITE BLOOD COUNT 9.5 10*3/uL (4.8-10.8)
[2021-07-08 07:00] LABS: BUN 27 mg/dl (7-24); CHLORIDE 108 mmol/L (98-107); POTASSIUM 4.5 mmol/L (3.5-5.1); SODIUM 141 mmol/L (136-145)
[2021-07-08 07:17] LABS: PLATELET SUFFICIENCY LOW (NORMAL); TOTAL CELLS COUNTED 100 #CELLS
[2021-07-08 08:00] VITALS: BP 117/76
[2021-07-08 12:00] VITALS: BP 95/61
[2021-07-08 16:00] VITALS: BP 108/60
[2021-07-08 20:00] VITALS: BP 95/59
[2021-07-09] VITALS: BP 98/59
[2021-07-09 08:00] VITALS: BP 106/74
[2021-07-09 12:00] VITALS: BP 110/80
[2021-07-09 16:00] VITALS: BP 123/75
[2021-07-09 20:00] VITALS: BP 104/86
[2021-07-10] VITALS: BP 104/71
[2021-07-10 06:29] LABS: HEMATOCRIT 44.9 % (42.0-52.0); MEAN CELL VOLUME 100.2 fl (80.0-94.0); MEAN CORPUSCULAR HGB 32.8 pg (27.0-31.0); MEAN CORPUSCULAR HGB CONC 32.7 g/dl (33.0-37.0); MEAN PLATELET VOLUME 11.3 fl (9.6-12.3); PLATELET COUNT AUTOMATED 129 10*3/uL (130-400); RED BLOOD COUNT 4.48 10*6/uL (4.50-5.90); RED CELL DISTRI WIDTH 15.9 % (0-14.5); WHITE BLOOD COUNT 12.5 10*3/uL (4.8-10.8)
[2021-07-10 06:37] LABS: BUN 29 mg/dl (7-24); CHLORIDE 112 mmol/L (98-107); CREATININE 0.84 mg/dL (0.70-1.30); POTASSIUM 4.7 mmol/L (3.5-5.1); SODIUM 143 mmol/L (136-145)
[2021-07-10 07:34] LABS: PLATELET SUFFICIENCY LOW (NORMAL); TOTAL CELLS COUNTED 100 #CELLS
[2021-07-10 08:00] VITALS: BP 95/72
[2021-07-10 12:00] VITALS: BP 114/81
[2021-07-10 16:00] VITALS: BP 114/80
[2021-07-10 20:00] VITALS: BP 110/68
[2021-07-11] VITALS: BP 110/78
[2021-07-11 06:16] LABS: MEAN CELL VOLUME 100.2 fl (80.0-94.0); MEAN CORPUSCULAR HGB 32.7 pg (27.0-31.0); MEAN CORPUSCULAR HGB CONC 32.7 g/dl (33.0-37.0); MEAN PLATELET VOLUME 11.7 fl (9.6-12.3); PLATELET COUNT AUTOMATED 132 10*3/uL (130-400); RED BLOOD COUNT 4.49 10*6/uL (4.50-5.90); WHITE BLOOD COUNT 14.9 10*3/uL (4.8-10.8)
[2021-07-11 06:24] LABS: BUN 29 mg/dl (7-24); CHLORIDE 109 mmol/L (98-107); CREATININE 0.83 mg/dL (0.70-1.30); POTASSIUM 4.3 mmol/L (3.5-5.1); SODIUM 142 mmol/L (136-145)
[2021-07-11 07:38] LABS: PLATELET SUFFICIENCY NORMAL (NORMAL); TOTAL CELLS COUNTED 100 #CELLS
[2021-07-11 08:00] VITALS: BP 108/88
[2021-07-11 12:00] VITALS: BP 97/72
[2021-07-11 16:00] VITALS: BP 108/60
[2021-07-11 20:00] VITALS: BP 121/73
[2021-07-12] VITALS: BP 142/87
[2021-07-12 06:35] LABS: BASO % 0.1 % (0.0-1.0); EOS % 0.3 % (1.0-4.0); HEMATOCRIT 46.4 % (42.0-52.0); LYMPH # 1.2 10*3/uL (1.3-4.4); LYMPH % 7.2 % (27.0-41.0); MEAN CELL VOLUME 102.2 fl (80.0-94.0); MEAN CORPUSCULAR HGB 32.4 pg (27.0-31.0); MEAN CORPUSCULAR HGB CONC 31.7 g/dl (33.0-37.0); MEAN PLATELET VOLUME 11.3 fl (9.6-12.3); MONO # 1.1 10*3/uL (0.1-1.0); MONO % 7.2 % (3.0-9.0); NEUT # 13.4 10*3/uL (2.3-7.9); NEUT % 83.8 % (47.0-73.0); PLATELET COUNT AUTOMATED 127 10*3/uL (130-400); RED BLOOD COUNT 4.54 10*6/uL (4.50-5.90); RED CELL DISTRI WIDTH 16.4 % (0-14.5); WHITE BLOOD COUNT 15.9 10*3/uL (4.8-10.8)
[2021-07-12 08:00] VITALS: BP 115/62
[2021-07-12 12:00] VITALS: BP 146/72
[2021-07-12 16:00] VITALS: BP 139/80
[2021-07-12 20:00] VITALS: BP 118/63; BP 118/636
[2021-07-13] VITALS: BP 119/66
[2021-07-13 08:00] VITALS: BP 106/68
[2021-07-13 12:00] VITALS: BP 119/76
[2021-07-13 16:00] VITALS: BP 108/65
[2021-07-13 20:00] VITALS: BP 117/80
[2021-07-14] VITALS: BP 102/48
[2021-07-14 06:26] LABS: CREATININE 0.83 mg/dL (0.70-1.30)
[2021-07-14 08:00] VITALS: BP 96/58
[2021-07-14 12:00] VITALS: BP 100/68
[2021-07-14 16:00] VITALS: BP 101/50
[2021-07-14 20:00] VITALS: BP 105/57
[2021-07-15] VITALS: BP 97/50
[2021-07-15 08:00] VITALS: BP 100/61
[2021-07-15 11:12] VITALS: BP 92/48
[2021-07-15 16:00] VITALS: BP 113/93
[2021-07-15 20:00] VITALS: BP 100/60; BP 100/66
[2021-07-16] VITALS: BP 128/83
[2021-07-16 06:46] LABS: BASO % 0.1 % (0.0-1.0); EOS # 0.1 10*3/uL (0.0-0.4); EOS % 0.8 % (1.0-4.0); HEMATOCRIT 46.4 % (42.0-52.0); LYMPH # 1.1 10*3/uL (1.3-4.4); LYMPH % 7.5 % (27.0-41.0); MEAN CELL VOLUME 101.8 fl (80.0-94.0); MEAN CORPUSCULAR HGB 32.5 pg (27.0-31.0); MEAN CORPUSCULAR HGB CONC 31.9 g/dl (33.0-37.0); MEAN PLATELET VOLUME 11.5 fl (9.6-12.3); MONO # 1.1 10*3/uL (0.1-1.0); MONO % 7.3 % (3.0-9.0); NEUT # 12.2 10*3/uL (2.3-7.9); NEUT % 83.4 % (47.0-73.0); PLATELET COUNT AUTOMATED 118 10*3/uL (130-400); RED BLOOD COUNT 4.56 10*6/uL (4.50-5.90); RED CELL DISTRI WIDTH 16.6 % (0-14.5); WHITE BLOOD COUNT 14.6 10*3/uL (4.8-10.8)
[2021-07-16 07:06] LABS: BUN 31 mg/dl (7-24); CHLORIDE 108 mmol/L (98-107); POTASSIUM 4.4 mmol/L (3.5-5.1); SODIUM 141 mmol/L (136-145)
[2021-07-16 07:07] LABS: CREATININE 0.62 mg/dL (0.70-1.30)
[2021-07-16 08:00] VITALS: BP 100/53
[2021-07-16 12:00] VITALS: BP 101/54
[2021-07-16] MEDS ORDERED: MUCUS RELIEF600 MG PO (14:52)
[2021-07-16 16:22] VITALS: BP 99/57
== END 2021-07-16 17:07 | DRG 177 ==
LOC: ED 17:01 → EDHOLD 19:08 → 5E 19:08 → 4E 07-03 13:54
PROVIDERS: Emergency Medicine; Internal Medicine; Internal Medicine Critical Care Medicine; ADMIT Internal Medicine; ATTEND Internal Medicine
PROC: 5A0935A Assistance with Respiratory Ventilation, Less than 24 Consecutive Hours, High Flow/Velocity Cannula (ICD-10-PCS; principal; 2021-07-01)
PROC: 5A0935A Assistance with Respiratory Ventilation, Less than 24 Consecutive Hours, High Flow/Velocity Cannula (ICD-10-PCS; 2021-07-04)
PROC: 5A0935A Assistance with Respiratory Ventilation, Less than 24 Consecutive Hours, High Flow/Velocity Cannula (ICD-10-PCS; 2021-07-05)
PROC: 5A0935A Assistance with Respiratory Ventilation, Less than 24 Consecutive Hours, High Flow/Velocity Cannula (ICD-10-PCS; 2021-07-06)
PROC: 5A0955A Assistance with Respiratory Ventilation, Greater than 96 Consecutive Hours, High Flow/Velocity Cannula (ICD-10-PCS; 2021-07-08)
PROC: 5A0935A Assistance with Respiratory Ventilation, Less than 24 Consecutive Hours, High Flow/Velocity Cannula (ICD-10-PCS; 2021-07-13)
PROC: 5A0945A Assistance with Respiratory Ventilation, 24-96 Consecutive Hours, High Flow/Velocity Cannula (ICD-10-PCS; 2021-07-14)
DX: J69.0 Pneumonitis due to inhalation of food and vomit (principal); G93.41 Metabolic encephalopathy; J96.21 Acute and chronic respiratory failure with hypoxia; I50.22 Chronic systolic (congestive) heart failure; E44.0 Moderate protein-calorie malnutrition; J98.11 Atelectasis; I48.0 Paroxysmal atrial fibrillation; T07.XXXA Unspecified multiple injuries, initial encounter; Z20.822 Contact with and (suspected) exposure to COVID-19; G89.29 Other chronic pain; M54.9 Dorsalgia, unspecified; F03.90 Unspecified dementia, unspecified severity, without behavioral disturbance, psychotic disturbance, mood disturbance, and anxiety; F32.9 Major depressive disorder, single episode, unspecified; E78.00 Pure hypercholesterolemia, unspecified; E87.8 Other disorders of electrolyte and fluid balance, not elsewhere classified; E55.9 Vitamin D deficiency, unspecified; S51.012A Laceration without foreign body of left elbow, initial encounter; S71.101A Unspecified open wound, right thigh, initial encounter; J43.9 Emphysema, unspecified; S31.829A Unspecified open wound of left buttock, initial encounter; N40.1 Benign prostatic hyperplasia with lower urinary tract symptoms; R33.8 Other retention of urine; Z82.49 Family history of ischemic heart disease and other diseases of the circulatory system; X58.XXXA Exposure to other specified factors, initial encounter; Y93.89 Activity, other specified; Y92.89 Other specified places as the place of occurrence of the external cause; Y99.8 Other external cause status; Z68.24 Body mass index [BMI] 24.0-24.9, adult

== ENCOUNTER 2021-08-08 15:27 | Emergency (ER) | payer OTHER ==
[~2021-08-08] VITALS: Ht 167.6 cm; Wt 70.8 kg
[~2021-08-08 15:27] MED LIST changes: +MUCUS RELIEF600 MG PO
== END 2021-08-08 16:00 ==
LOC: ED 15:27
DX: M79.661 Pain in right lower leg (principal); M79.662 Pain in left lower leg

== ENCOUNTER 2021-08-29 14:00 | Inpatient (IN) | payer OTHER ==
[~2021-08-29] VITALS: Ht 182.8 cm; Wt 68.0 kg
[2021-08-29 14:17] VITALS: BP 132/98
[2021-08-29 15:30] VITALS: BP 118/60
[2021-08-29 18:22] LABS: BASO % 0.2 % (0.0-1.0); EOS # 0.1 10*3/uL (0.0-0.4); EOS % 1.4 % (1.0-4.0); HEMATOCRIT 43.5 % (42.0-52.0); LYMPH # 1.6 10*3/uL (1.3-4.4); LYMPH % 16.8 % (27.0-41.0); MEAN CELL VOLUME 98.9 fl (80.0-94.0); MEAN CORPUSCULAR HGB CONC 32.4 g/dl (33.0-37.0); MEAN PLATELET VOLUME 10.6 fl (9.6-12.3); MONO # 1.4 10*3/uL (0.1-1.0); NEUT # 6.3 10*3/uL (2.3-7.9); PLATELET COUNT AUTOMATED 188 10*3/uL (130-400); WHITE BLOOD COUNT 9.6 10*3/uL (4.8-10.8)
[2021-08-29 18:36] LABS: ALBUMIN 2.1 gm/dl (3.1-4.5); ALKALINE PHOSPHATASE 82 U/L (45-117); BUN 30 mg/dl (7-24); CHLORIDE 108 mmol/L (98-107); CREATININE 0.93 mg/dL (0.70-1.30); POTASSIUM 3.3 mmol/L (3.5-5.1); SGOT/AST 41 IU/L (3-35); SGPT/ALT 36 U/L (12-78); SODIUM 144 mmol/L (136-145); TOTAL PROTEIN 6.1 gm/dL (6.4-8.2)
[2021-08-29 22:10] VITALS: BP 102/62
[2021-08-29 23:59] VITALS: BP 108/76
[2021-08-30 00:10] VITALS: BP 80/50
[2021-08-30 00:53] VITALS: BP 89/56
[2021-08-30 06:22] VITALS: BP 93/56
[2021-08-30 16:31] VITALS: BP 94/53
[2021-08-30 21:30] VITALS: BP 86/58
[2021-08-31 02:00] VITALS: BP 82/57
[2021-08-31 06:21] LABS: HEMATOCRIT 40.6 % (42.0-52.0); MEAN CELL VOLUME 100.7 fl (80.0-94.0); MEAN CORPUSCULAR HGB 32.3 pg (27.0-31.0); MEAN PLATELET VOLUME 10.7 fl (9.6-12.3); PLATELET COUNT AUTOMATED 160 10*3/uL (130-400); RED BLOOD COUNT 4.03 10*6/uL (4.50-5.90); RED CELL DISTRI WIDTH 16.8 % (0-14.5); WHITE BLOOD COUNT 8.2 10*3/uL (4.8-10.8)
[2021-08-31 06:36] LABS: ALBUMIN 1.6 gm/dl (3.1-4.5); ALKALINE PHOSPHATASE 69 U/L (45-117); CHLORIDE 114 mmol/L (98-107); CREATININE 0.66 mg/dL (0.70-1.30); POTASSIUM 3.2 mmol/L (3.5-5.1); SGOT/AST 16 IU/L (3-35); SGPT/ALT 28 U/L (12-78); SODIUM 146 mmol/L (136-145); TOTAL PROTEIN 5.3 gm/dL (6.4-8.2)
[2021-08-31 06:37] LABS: BUN 19 mg/dl (7-24)
[2021-08-31 07:30] VITALS: BP 90/58
[2021-08-31 07:44] LABS: PLATELET SUFFICIENCY NORMAL (NORMAL); TOTAL CELLS COUNTED 100 #CELLS
[2021-08-31 08:51] VITALS: BP 98/60
[2021-08-31 11:30] VITALS: BP 95/70
[2021-08-31 12:50] VITALS: BP 95/70
[2021-08-31 14:46] VITALS: BP 88/59
== END 2021-08-31 14:05 | disposition hospice, inpatient (51) | DRG 871 ==
LOC: ED 14:00 → EDHOLD 08-30 07:42
PROVIDERS: Internal Medicine; Registered Nurse; ADMIT Emergency Medicine; ATTEND Emergency Medicine
PROC: 5A0935A Assistance with Respiratory Ventilation, Less than 24 Consecutive Hours, High Flow/Velocity Cannula (ICD-10-PCS; principal; 2021-08-31)
DX: A41.9 Sepsis, unspecified organism (principal); G93.41 Metabolic encephalopathy; E43 Unspecified severe protein-calorie malnutrition; J15.6 Pneumonia due to other Gram-negative bacteria; J96.21 Acute and chronic respiratory failure with hypoxia; R65.21 Severe sepsis with septic shock; I50.22 Chronic systolic (congestive) heart failure; I48.0 Paroxysmal atrial fibrillation; E78.00 Pure hypercholesterolemia, unspecified; R26.2 Difficulty in walking, not elsewhere classified; E87.6 Hypokalemia; R74.01 Elevation of levels of liver transaminase levels; K21.9 Gastro-esophageal reflux disease without esophagitis; N40.0 Benign prostatic hyperplasia without lower urinary tract symptoms; Z51.5 Encounter for palliative care; R54 Age-related physical debility

== ENCOUNTER 2021-08-31 14:06 | Inpatient (IN) | payer OTHER ==
[~2021-08-31] VITALS: Ht 172.7 cm
[2021-08-31 16:05] VITALS: BP 90/65
[2021-08-31 18:20] VITALS: BP 96/58
[2021-08-31 20:00] VITALS: BP 90/67
[2021-09-01] VITALS: BP 105/76
[2021-09-01 08:00] VITALS: BP 102/65
[2021-09-01 12:00] VITALS: BP 107/62
[2021-09-01 16:00] VITALS: BP 107/81
[2021-09-01 20:06] VITALS: BP 108/81
[2021-09-02] VITALS: BP 98/71
[2021-09-02 08:00] VITALS: BP 96/69
[2021-09-02 12:00] VITALS: BP 96/68
[2021-09-02 16:00] VITALS: BP 95/62
[2021-09-02 20:00] VITALS: BP 93/63
[2021-09-03] VITALS: BP 89/75; BP 98/58
[2021-09-03 08:00] VITALS: BP 72/56
[2021-09-03 12:00] VITALS: BP 91/58
[2021-09-03 16:00] VITALS: BP 92/68
[2021-09-03 20:00] VITALS: BP 105/71
[2021-09-04] VITALS: BP 94/73
[2021-09-04 04:00] VITALS: BP 84/47
[2021-09-04 06:00] VITALS: BP 84/47
[2021-09-04 08:00] VITALS: BP 120/70
[2021-09-04 12:00] VITALS: BP 90/64
[2021-09-04 16:00] VITALS: BP 90/68
[2021-09-05] VITALS: BP 97/79
[2021-09-05 08:00] VITALS: BP 102/59
[2021-09-05 16:00] VITALS: BP 99/69
[2021-09-05 20:00] VITALS: BP 97/72
[2021-09-06] VITALS: BP 96/73
[2021-09-06 08:00] VITALS: BP 104/70
[2021-09-06 16:00] VITALS: BP 110/75
== END 2021-09-06 17:38 | disposition hospice, home (50) | DRG 193 ==
LOC: ED 14:07 → EDHOLD 14:08 → 4E 14:08 → EDHOLD 14:43 → EDSTATUS 15:24 → 4E 17:02
PROVIDERS: ADMIT Family Medicine; ATTEND Family Medicine
PROC: 5A0935A Assistance with Respiratory Ventilation, Less than 24 Consecutive Hours, High Flow/Velocity Cannula (ICD-10-PCS; principal; 2021-08-31)
PROC: 5A09357 Assistance with Respiratory Ventilation, Less than 24 Consecutive Hours, Continuous Positive Airway Pressure (ICD-10-PCS; 2021-09-02)
PROC: 5A0935A Assistance with Respiratory Ventilation, Less than 24 Consecutive Hours, High Flow/Velocity Cannula (ICD-10-PCS; 2021-09-03)
PROC: 5A0945A Assistance with Respiratory Ventilation, 24-96 Consecutive Hours, High Flow/Velocity Cannula (ICD-10-PCS; 2021-09-04)
DX: J18.9 Pneumonia, unspecified organism (principal); E43 Unspecified severe protein-calorie malnutrition; G93.41 Metabolic encephalopathy; J96.21 Acute and chronic respiratory failure with hypoxia; J44.0 Chronic obstructive pulmonary disease with (acute) lower respiratory infection; R26.2 Difficulty in walking, not elsewhere classified; Z20.822 Contact with and (suspected) exposure to COVID-19; Z51.5 Encounter for palliative care; I50.9 Heart failure, unspecified; E78.5 Hyperlipidemia, unspecified; F03.90 Unspecified dementia, unspecified severity, without behavioral disturbance, psychotic disturbance, mood disturbance, and anxiety